=== PATIENT | male | born 1960 | race Caucasian/White ===

== ENCOUNTER 2019-04-14 18:28 | Emergency (ER) | payer MEDICARE ==
--- NOTE | 2019-04-14 18:31 | ERPHSYRPT ---
- History of Present Illness Time Seen by Provider: 04/14/19 18:30 Source: patient, EMS Exam Limitations: clinical condition Physician History: 58 y/o obese diabetic male with h/o copd brought into ED with low blood glucose and confusion. pt improved after amp of d50. pt arrives alert and answering questions appropriately. denies head ache, denies soa, denies cp, denies abd pain. Timing/Duration: today Severity: moderate Associated Symptoms: malaise, No nausea, No vomiting, No abdominal pain, No shortness of breath, No chest pain, No headaches Allergies/Adverse Reactions: codeine Allergy (Verified 04/14/19 18:54) morphine Allergy (Verified 04/14/19 18:54) tramadol Allergy (Verified 04/14/19 18:54) Home Medications: Albuterol Sulfate [Proair Hfa] 8.5 gm IH Q6H PRN PRN 04/14/19 [History] Aspirin EC 81 mg [Ecotrin 81 mg] 81 mg PO DAILY 04/14/19 [History] Atorvastatin Calcium 80 mg PO DAILY 04/14/19 [History] Brexpiprazole [Rexulti] 1 mg PO DAILY 04/14/19 [History] Bupropion HCl [Wellbutrin Xl] 300 mg PO DAILY 04/14/19 [History] Doxepin HCl 75 mg PO DAILY 04/14/19 [History] Duloxetine HCl [Cymbalta] 60 mg PO DAILY 04/14/19 [History] Exenatide Microspheres [Bydureon Bcise] 2 mg SQ WEEKLY 04/14/19 [History] Gabapentin 600 mg PO TID 04/14/19 [History] Insulin Glargine,Hum.rec.anlog [Basaglar Kwikpen U-100] 60 unit SQ DAILY [History] Insulin Glulisine [Apidra Solostar] 10 unit SQ EVENING MEAL 04/14/19 [History] Liraglutide [Victoza 2-Lemuel] 0.6 mg SQ QDP PRN 04/14/19 [History] Lisinopril 10 mg [Zestril 10 MG] 10 mg PO DAILY 04/14/19 [History] Nitroglycerin 0.2 mg/Hr [Nitro-Dur 0.2 mg/Hr] 0.2 mg TOP DAILY 04/14/19 [ History] [place]-3 Fatty Acids/Fish Oil [Fish Oil 1,000 mg Capsule] 1 each PO BID 04/14/19 [History] Rivaroxaban [Xarelto] 20 mg PO DAILY 04/14/19 [History] Sotalol HCl [Sotalol] 120 mg PO BID 04/14/19 [History] Tamsulosin HCl 0.4 mg PO DAILY 04/14/19 [History] Tapentadol HCl [Nucynta] 75 mg PO QID 04/14/19 [History] - Review of Systems Constitutional: No Symptoms Eyes: No Symptoms Ears, Nose, & Throat: No Symptoms Respiratory: No Symptoms Cardiac: No Symptoms Abdominal/Gastrointestinal: No Symptoms Genitourinary Symptoms: No Symptoms Musculoskeletal: No Symptoms Skin: No Symptoms Neurological: Lethargy Psychological: No Symptoms Endocrine: No Symptoms Hematologic/Lymphatic: No Symptoms Immunological/Allergic: No Symptoms All Other Systems: Reviewed and Negative - Past Medical History Pertinent Past Medical History: Yes Neurological History: No Pertinent History ENT History: No Pertinent History Cardiac History: No Pertinent History Respiratory History: No Pertinent History Endocrine Medical History: No Pertinent History Musculoskeletal History: No Pertinent History GI Medical History: No Pertinent History History: No Pertinent History Psycho-Social History: No Pertinent History Male Reproductive Disorders: No Pertinent History - Past Surgical History Neuro Surgical History: No Pertinent History Cardiac: No Pertinent History Respiratory: No Pertinent History Gastrointestinal: No Pertinent History Genitourinary: No Pertinent History Musculoskeletal: No Pertinent History Male Surgical History: No Pertinent History - Nursing Vital Signs Nursing Vital Signs: Initial Vital Signs Pulse Rate 73 04/14/19 18:31 Respiratory Rate 20 04/14/19 18:31 Blood Pressure 141/70 04/14/19 18:31 O2 Sat by Pulse Oximetry 99 04/14/19 18:31 Pain Scale Pain Intensity 0 - Physical Exam General Appearance: alert, obese Eye Exam: PERRL/EOMI, eyes nml inspection Ears, Nose, Throat Exam: normal ENT inspection, moist mucous membranes Neck Exam: normal inspection, non-tender, supple, full range of motion Respiratory Exam: normal breath sounds, lungs clear, airway intact, No chest tenderness, No respiratory distress Cardiovascular Exam: regular rate/rhythm, normal heart sounds, normal peripheral pulses Gastrointestinal/Abdomen Exam: soft, normal bowel sounds, No tenderness Rectal Exam: not done Back Exam: normal inspection, normal range of motion, No CVA tenderness, No vertebral tenderness Extremity Exam: normal inspection, normal range of motion, pelvis stable Neurologic Exam: alert, oriented x 3, cooperative, nursing care partner II-XII nml as tested Skin Exam: normal color, warm, dry Lymphatic Exam: No adenopathy SpO2 Interpretation: normal O2 Delivery: Room Air - Course Nursing assessment & vital signs reviewed: Yes EKG Interpreted by Me: RATE (73), Sinus Rhythm, NORMAL AXIS, NORMAL INTERVALS, NORMAL QRS, Other (SI/QIII pattern. no comparison ekg) Ordered Tests: Active Orders 24 hr Category Date Time Status ACCUCHECK [Accucheck] STAT Care 04/14/19 18:40 Active Circuit Recorder STAT Care 04/14/19 18:41 Active Clean Catch Urine Specimen STAT Care 04/14/19 18:41 Active EKG-ER Only STAT Care 04/14/19 18:40 Active IV Insertion STAT Care 04/14/19 18:40 Active Pulse Oximetry (ED) STAT Care 04/14/19 18:44 Active HEAD WITHOUT CONTRAST [CT] Stat Exams 04/14/19 19:53 Taken Alcohol [ETHYL ALCOHOL] Stat Lab 04/14/19 18:55 Completed CBC W DIFF Stat Lab 04/14/19 18:55 Completed CMP Stat Lab 04/14/19 18:55 Completed Manual Differential NC Stat Lab 04/14/19 18:55 Completed UA W/RFX UR CULTURE Stat Lab 04/14/19 18:41 Uncollected Urine Triage Profile Stat Lab 04/14/19 Uncollected Medication Summary Generic Name Dose Route Start Last Admin Trade Name Freq PRN Reason Stop Dose Admin Dextrose/Sodium Chloride 1,000 mls @ 100 mls/hr 04/14/19 19:30 04/14/19 19:11 Dextrose 5%-Ns Iv Solution 1000 Ml IV 05/14/19 19:29 100 mls/hr .Q10H KARLA Administration Discontinued Medications Generic Name Dose Route Start Last Admin Trade Name Freq PRN Reason Stop Dose Admin Dextrose Confirm 04/14/19 18:32 D50w 50 Ml Abboject Administered 04/14/19 18:33 Dose 50 ml IV .STK-MED ONE Dextrose 50 ml 04/14/19 18:42 04/14/19 18:40 D50w 50ml Vial IV 04/14/19 18:43 50 ml STAT ONE Administration Lab/Rad Data: Laboratory Result Diagrams 04/14/19 18:55 04/14/19 18:55 Laboratory Results 04/14/19 04/14/19 Range/Units 18:55 18:55 WBC 13.8 H (4.0-10.5) K/mm3 RBC 5.21 (4.1-5.6) M/mm3 Hgb 14.9 (12.5-18.0) gm/dl Hct 45.7 (42-50) % MCV 87.7 (78-100) fl MCH 28.6 (26-32) pg MCHC 32.6 (32-36) g/dl RDW 14.1 H (11.5-14.0) % Plt Count 194 (150-450) K/mm3 MPV 9.7 H (6-9.5) fl Segmented Neutrophils 74 H (36.-66.) % Lymphocytes (Manual) 18 L (24-44) % Eosinophils (Manual) 5 H (0.00-3.0) % Basophils (Manual) 3 H (0.0-1.0) % Hypochromia 1+ Platelet Estimate NORMAL (NORMAL) Poikilocytosis 1+ Anisocytosis 1+ Sodium 137 (137-145) mmol/L Potassium 4.2 (3.5-5.1) mmol/L Chloride 103 (98-107) mmol/L Carbon Dioxide 27 (22-30) mmol/L Anion Gap 11.9 (5-15) MEQ/L BUN 23 H (9-20) mg/dL Creatinine 1.17 (0.66-1.25) mg/dL Estimated GFR > 60.0 ML/MIN Glucose 197 H (74-106) mg/dL Calcium 8.9 (8.4-10.2) mg/dL Total Bilirubin 0.50 (0.2-1.3) mg/dL AST 21 (17-59) U/L ALT 16 (0-50) U/L Alkaline Phosphatase 131 H (38-126) U/L Serum Total Protein 8.4 H (6.3-8.2) g/dL Albumin 4.2 (3.5-5.0) g/dL Ethyl Alcohol < 10 (0-10) mg/dL - Progress Progress: improved, re-examined Progress Note: 04/14/19 21:32 pt denies cp, denies soa and denies abd pain. pt is alert and oriented. ct head-no acute intracranial abnormality Counseled pt/family regarding: lab results, diagnosis, need for follow-up, rad results - Departure Departure Disposition: Home Clinical Impression: Hypoglycemia, Confusion Condition: Stable Critical Care Time: No Referrals: LEATHA ALCANTARA MD [Primary Care Provider] - Additional Instructions: hold you night time insulin or oral diabetic pills. follow up with your primary doctor tomorrow for further management
[2019-04-14] MEDS ORDERED: D50W 50 ml Abboject IV ONE (18:32)
[2019-04-14] MEDS ORDERED: D50W 50ML Vial IV ONE (18:42)
[2019-04-14 19:01] LABS: Hematocrit 45.7 % (42-50); Hemoglobin 14.9 gm/dl (12.5-18.0); Mean Cell Volume 87.7 fl (78-100); Mean Corpuscular Hemoglobin 28.6 pg (26-32); Mean Corpuscular Hgb Concent. 32.6 g/dl (32-36); Mean Platelet Volume 9.7 fl (6-9.5); Platelet Count 194 K/mm3 (150-450); Red Blood Count 5.21 M/mm3 (4.1-5.6); Red Cell Distribution Width 14.1 % (11.5-14.0); White Blood Count 13.8 K/mm3 (4.0-10.5)
[2019-04-14] MEDS ORDERED: Dextrose 5%-NS IV Solution 1000 ML 1,000 ML IV ONE (19:10)
[2019-04-14 19:13] LABS: ALBUMIN 4.2 g/dL (3.5-5.0); ALKALINE PHOSPHATASE 131 U/L (38-126); ANION GAP 11.9 MEQ/L (5-15); BLOOD UREA NITROGEN 23 mg/dL (9-20); CHLORIDE 103 mmol/L (98-107); Calcium 8.9 mg/dL (8.4-10.2); Carbon Dioxide 27 mmol/L (22-30); Creatinine 1 1.17 mg/dL (0.66-1.25); Glucose 197 mg/dL (74-106); Potassium 4.2 mmol/L (3.5-5.1); SGOT/AST 21 U/L (17-59); SGPT/ALT 16 U/L (0-50); SODIUM 137 mmol/L (137-145); Total Protein 8.4 g/dL (6.3-8.2)
[2019-04-14 19:19] LABS: ETHYL ALCOHOL < 10 mg/dL (0-10)
[2019-04-14] MEDS ORDERED: Dextrose 5%-NS IV Solution 1000 ML 1,000 ML IV SCH (19:30)
[2019-04-14 19:38] LABS: Basophil 3 % (0.0-1.0); Eosinophil 5 % (0.00-3.0); Lymphocytes 18 % (24-44); Neutrophils 74 % (36.-66.); Platelet Estimate NORMAL (NORMAL); Total Cells Counted 100
[2019-04-14 19:39] LABS: ANISOCYTOSIS 1+; Hypochromia 1+; Poikilocytosis 1+
[2019-04-14 20:25] VITALS: O2SAT 98
[2019-04-14 21:39] VITALS: BP 145/73
[2019-04-14 22:07] VITALS: PULSE 137
--- NOTE | 2019-04-15 17:26 | XRAY ---
Exam: CT of the head without IV contrast from 04/14/2019. CTDI: 70.55 Comparison: None. Indication: 58-year-old male with confusion x one day and low blood sugar, no history of prior head surgery. Technique: Non-IV contrast axial images were obtained through the brain. Reconstructed coronal and sagittal images were created and reviewed. Findings: The ventricles are of unremarkable size and shape. No focal mass effect or midline shift is seen. No acute intracranial bleed or abnormal extra-axial fluid collection is seen. There are some subtle deep white matter changes, likely due to minimal chronic microvascular disease. No low attenuation territorial infarct is seen. The cortical sulci and basilar cisterns appear unremarkable. Structures of posterior fossa appear unremarkable. The calvarium of the skull appears intact. There is some minimal mucosal thickening within the frontoethmoidal recesses and ethmoid sinuses bilaterally. No air-fluid levels are seen. The mastoid air cells are well aerated without effusion. The middle ear cavities appear grossly unremarkable. There appears to be a 1.1 cm in diameter sebaceous cyst near the vertex the skull just to the right of midline on axial images #36 and #37. I believe there is also a small sebaceous cyst measuring about 8.3 mm in diameter within the posterior right occipital region on axial image #22. There is a question of some minimal scalp soft tissue swelling overlying the high left parietal region. Correlate clinically. Incidentally, there are some calcifications within the soft tissues of each external ear, more numerous on the right than left. Impression: 1. No acute intracranial bleed or other acute intracranial abnormality is seen. 2. I believe there is some mild chronic mucosal thickening within both frontal ethmoid recesses and both ethmoid sinuses, likely due to chronic sinus disease/sinusitis. No air-fluid levels are seen. 3. Other incidental findings, as discussed above.
== END 2019-04-14 22:07 | disposition home or self-care (01) ==
LOC: ED 18:28
DX: E16.2 Hypoglycemia, unspecified (principal); Z79.4 Long term (current) use of insulin; R41.0 Disorientation, unspecified; Z79.01 Long term (current) use of anticoagulants
CPT/HCPCS: 36000; 36415; 70450; 80053; 82962; 85025; 93005; 93041; 94760; 96374; 99284; G0480; 80307